=== PATIENT | female | born 1995 | race African-American/Black ===

== ENCOUNTER 2021-05-29 19:41 | Emergency (ER) | payer OTHER ==
[~2021-05-29] VITALS: Ht 160 cm; Wt 49.9 kg
[2021-05-29 23:30] VITALS: BP 110/78
== END 2021-05-29 23:30 | disposition home or self-care (01) ==
LOC: ER 19:41
DX: F25.9 Schizoaffective disorder, unspecified (principal); Z20.822 Contact with and (suspected) exposure to COVID-19; F19.10 Other psychoactive substance abuse, uncomplicated; F12.90 Cannabis use, unspecified, uncomplicated; Z59.00 Homelessness unspecified